=== PATIENT | male | born 1960 | race Caucasian/White ===

== ENCOUNTER 2025-02-16 01:33 | Inpatient (IN) | payer MEDICAID ==
[~2025-02-16] VITALS: Ht 172.7 cm; Wt 82.0 kg
[2025-02-16] VITALS (10 sets, daily range): BP systolic 105–158; BP diastolic 52–67; PULSE 89–103; RESP 10–20; TEMP 97–97.8; O2SAT 86–99
[2025-02-16] MEDS ORDERED: ALB0.5UD IH (01:45)
[2025-02-16 02:11] LABS: BASOPHILS % (AUTO) 0.1 % (0-1); EOSINOPHILS % (AUTO) 0 % (0-6); HEMATOCRIT 37.6 % (42.0-52.0); HEMOGLOBIN 12.9 g/dl (14.0-17.9); LYMPHOCYTES # (AUTO) 0.6 X10'3 (1.1-4.8); LYMPHOCYTES % (AUTO) 7.5 % (21-51); MEAN CORPUSCULAR HEMOGLOBIN 28.6 PG (27.0-31.0); MEAN CORPUSCULAR HGB CONC 34.2 g/dL (33.0-36.5); MEAN CORPUSCULAR VOLUME 83.6 FL (78-98); MEAN PLATELET VOLUME 7.3 FL (7.4-10.4); MONOCYTES # (AUTO) 0.5 X10'3 (0-0.9); NEUTROPHILS # (AUTO) 7.2 X10'3 (1.8-7.7); NEUTROPHILS % (AUTO) 86.4 % (42-75); PLATELET COUNT 426 X10'3 (140-440); RED CELL DISTRIBUTION WIDTH 14.4 % (11.5-14.5); WHITE BLOOD COUNT 8.4 X10'3 (4.5-11.0)
[2025-02-16 02:20] LABS: ALBUMIN 2.5 G/DL (3.4-5.0); ANION GAP 15 (8-16); BLOOD UREA NITROGEN 112 MG/DL (7-18); BUN/CREATININE RATIO 31.6 (10.0-20.0); CALCIUM 7.1 MG/DL (8.5-10.1); CHLORIDE 97 MMOL/L (99-107); CREATININE 3.54 MG/DL (0.60-1.10); GLUCOSE 108 MG/DL (70-104); POTASSIUM 4.4 MMOL/L (3.5-5.1); SODIUM 133 MMOL/L (135-145); TOTAL CARBON DIOXIDE 20.6 MMOL/L (24-32); eCRCL 22 ML/MIN; eGFR 18 ML/MIN
[2025-02-16 02:27] LABS: BILIRUBIN,URINE NEGATIVE (Neg); CLARITY,URINE CLEAR (Clear); COLOR,URINE YELLOW (Yellow); GLUCOSE, URINE NEGATIVE (Neg); KETONES,URINE NEGATIVE (Neg); LEUKOCYTE ESTERASE ,URINE NEGATIVE (Neg); NITRITES, URINE NEGATIVE (Neg); OCCULT BLOOD,URINE MODERATE (Neg); PH,URINE 5.5 (4.8-8.0); PROTEIN,URINE 30 mg/dl (Neg); UROBILINOGEN,URINE 0.2 E.U/dL (0.2-1.0)
[2025-02-16 02:43] LABS: UA COLLECTION TYPE URINAL
[2025-02-16 02:44] LABS: HYALINE CASTS 0-3 /LPF (NEGATIVE); SQUAMOUS EPITHELIAL CELL,UR FEW /LPF (FEW)
[2025-02-16 02:45] LABS: AMORPHOUS URATES 1+; BACTERIA,URINE 1+ /HPF (Neg); WBC,URINE 0-4 /HPF (0-4)
[2025-02-16] MEDS ORDERED: morphine 2 MG/ML inj. syringe IV PRN (03:25)
[2025-02-16] MEDS ORDERED: magnesium sulf-water 2g/50mL 50 ML IV PRN (03:25)
[2025-02-16] MEDS ORDERED: albuterol 2.5 MG/3 ML nebule NEB PRN (03:25)
[2025-02-16] MEDS ORDERED: potassium Cl 40MEQ/1/2NS 520ml 520 ML IV PRN (03:25)
[2025-02-16] MEDS ORDERED: magnesium Cl slow-release 64mg tablet PO PRN (03:25)
[2025-02-16] MEDS ORDERED: acetaminophen 325mg tablet PO PRN ×2 (03:25)
[2025-02-16] MEDS ORDERED: magnesium sulf-water 4G/100mL 100 ML IV PRN (03:25)
[2025-02-16] MEDS ORDERED: mag hydrox/Alum hydrox/simeth 30ml oral suspension PO PRN (03:25)
[2025-02-16] MEDS ORDERED: ondansetron/PF 4mg/2ml inj IV PRN (03:25)
[2025-02-16] MEDS ORDERED: potassium Cl 20 mEq SR tablet PO PRN ×2 (03:25)
[2025-02-16] MEDS: normal saline 1000ml 1,000 ML IV SCH (03:43)
[2025-02-16 04:06] LABS: HEMOGLOBIN A1C 5.5 % (4.5-6.2)
[2025-02-16 04:28] LABS: OSMOLALITY UA 441 MOSM/K (50-1400)
[2025-02-16 04:43] LABS: SODIUM,URINE RANDOM < 15 MEQ/L; URINE AMPHETAMINE SCREEN POSITIVE (Neg); URINE BARBITUATE SCREEN NEGATIVE (Neg); URINE BENZODIAZEPINES SCREEN NEGATIVE (Neg); URINE CANNABINOID SCREEN POSITIVE (Neg); URINE COCAINE SCREEN NEGATIVE (Neg); URINE METHADONE SCREEN NEGATIVE (Neg); URINE OPIATE SCREEN POSITIVE (Neg); URINE PHENCYCLIDINE SCREEN NEGATIVE (Neg)
[2025-02-16 05:07] LABS: MAGNESIUM 1.8 MG/DL (1.5-2.4); PHOSPHORUS 7.3 MG/DL (2.3-4.5)
[2025-02-16] MEDS: docusate sod 100mg capsule PO SCH (07:07)
[2025-02-16] MEDS: heparin, porcine 5000 units/ml vial SQ SCH (07:08)
[2025-02-16] MEDS: morphine 2 MG/ML inj. syringe IV PRN (07:08)
[2025-02-16] MEDS: K and/or MAG REPLACEMENT MC SCH (08:00)
[2025-02-16] MEDS: mineral oil 133ml enema RC PRN (09:55)
[2025-02-16 16:59] LABS: CHLORIDE,URINE RANDOM < 50 MEQ/L; SODIUM,URINE RANDOM 22 MEQ/L
[2025-02-16 17:01] LABS: OSMOLALITY UA 448 MOSM/K (50-1400)
[2025-02-16] MEDS: magnesium hydroxide 30ml (MOM) UD suspension PO PRN (21:38)
[2025-02-17] VITALS (8 sets, daily range): BP systolic 129–155; BP diastolic 52–73; PULSE 68–100; RESP 15–18; TEMP 97–98.6; O2SAT 90–99
[2025-02-17 06:56] LABS: OCCULT BLOOD STOOL NEGATIVE (Neg)
[2025-02-17 07:46] LABS: BASOPHILS % (AUTO) 0.2 % (0-1); EOSINOPHILS % (AUTO) 0.2 % (0-6); HEMATOCRIT 38.6 % (42.0-52.0); HEMOGLOBIN 12.9 g/dl (14.0-17.9); LYMPHOCYTES # (AUTO) 0.4 X10'3 (1.1-4.8); LYMPHOCYTES % (AUTO) 4.4 % (21-51); MEAN CORPUSCULAR HEMOGLOBIN 28.5 PG (27.0-31.0); MEAN CORPUSCULAR HGB CONC 33.4 g/dL (33.0-36.5); MEAN CORPUSCULAR VOLUME 85.3 FL (78-98); MEAN PLATELET VOLUME 7.5 FL (7.4-10.4); MONOCYTES # (AUTO) 0.8 X10'3 (0-0.9); MONOCYTES % (AUTO) 8.3 % (2-12); NEUTROPHILS # (AUTO) 8.9 X10'3 (1.8-7.7); NEUTROPHILS % (AUTO) 86.9 % (42-75); PLATELET COUNT 494 X10'3 (140-440); RED BLOOD COUNT 4.53 X10'6 (4.70-6.10); RED CELL DISTRIBUTION WIDTH 14.7 % (11.5-14.5); WHITE BLOOD COUNT 10.2 X10'3 (4.5-11.0)
[2025-02-17 08:05] LABS: ALBUMIN 2.2 G/DL (3.4-5.0); ANION GAP 15 (8-16); BLOOD UREA NITROGEN 82 MG/DL (7-18); BUN/CREATININE RATIO 37.6 (10.0-20.0); CALCIUM 8.1 MG/DL (8.5-10.1); CHLORIDE 107 MMOL/L (99-107); CHOLESTEROL 90 MG/DL (0-200); CREATININE 2.18 MG/DL (0.60-1.10); GLUCOSE 54 MG/DL (70-104); HDL CHOLESTEROL 18 MG/DL (35-60); LDL CHOLESTEROL 40 MG/DL (50-100); POTASSIUM 3.9 MMOL/L (3.5-5.1); SODIUM 143 MMOL/L (135-145); TOTAL CARBON DIOXIDE 20.9 MMOL/L (24-32); TRIGLYCERIDES 200 MG/DL (20-135); eCRCL 36 ML/MIN; eGFR 31 ML/MIN
[2025-02-17] MEDS ORDERED: ringers solution, lacted 1,000 ML IV SCH (13:55)
[2025-02-17] MEDS: dextrose 5%-water 1,000 ML IV SCH (15:26)
[2025-02-18] VITALS (22 sets, daily range): BP systolic 121–164; BP diastolic 54–84; PULSE 70–100; RESP 12–22; TEMP 97.7–99.9; O2SAT 91–100
[2025-02-18] MEDS: morphine 2 MG/ML inj. syringe IV PRN (03:57)
[2025-02-18 05:10] LABS: BASOPHILS % (AUTO) 0.2 % (0-1); EOSINOPHILS # (AUTO) 0.1 X10'3 (0-0.9); EOSINOPHILS % (AUTO) 0.8 % (0-6); HEMATOCRIT 36.7 % (42.0-52.0); HEMOGLOBIN 12.4 g/dl (14.0-17.9); LYMPHOCYTES # (AUTO) 0.7 X10'3 (1.1-4.8); LYMPHOCYTES % (AUTO) 6.9 % (21-51); MEAN CORPUSCULAR HEMOGLOBIN 28.7 PG (27.0-31.0); MEAN CORPUSCULAR HGB CONC 33.8 g/dL (33.0-36.5); MEAN PLATELET VOLUME 6.9 FL (7.4-10.4); MONOCYTES # (AUTO) 0.9 X10'3 (0-0.9); MONOCYTES % (AUTO) 8.4 % (2-12); NEUTROPHILS # (AUTO) 8.7 X10'3 (1.8-7.7); NEUTROPHILS % (AUTO) 83.7 % (42-75); PLATELET COUNT 481 X10'3 (140-440); RED BLOOD COUNT 4.32 X10'6 (4.70-6.10); RED CELL DISTRIBUTION WIDTH 14.4 % (11.5-14.5); WHITE BLOOD COUNT 10.4 X10'3 (4.5-11.0)
[2025-02-18 05:22] LABS: ANION GAP 7 (8-16); BLOOD UREA NITROGEN 43 MG/DL (7-18); BUN/CREATININE RATIO 31.9 (10.0-20.0); CALCIUM 8.1 MG/DL (8.5-10.1); CHLORIDE 103 MMOL/L (99-107); CREATININE 1.35 MG/DL (0.60-1.10); GLUCOSE 120 MG/DL (70-104); POTASSIUM 3.5 MMOL/L (3.5-5.1); SODIUM 136 MMOL/L (135-145); eCRCL 58 ML/MIN; eGFR 53 ML/MIN
[2025-02-18] MEDS: ipratropium/albuterol 3ml nebule NEB PRN (08:34)
[2025-02-18] MEDS: amLODIPine 5mg tablet PO ONE (09:02)
[2025-02-18] MEDS ORDERED: iohexol 300mg/ml 100ml inj. ONE (10:34)
[2025-02-18] MEDS ORDERED: morphine 4 MG/ML inj SYRINge IV PRN (13:10)
[2025-02-18] MEDS ORDERED: meperidine/PF 25mg/ml syringe IV PRN ×3 (13:10)
[2025-02-18] MEDS ORDERED: labetalol 20mg/4ml (5mg/ml) syringe IV PRN (13:10)
[2025-02-18] MEDS ORDERED: ringers solution, lacted 1,000 ML IV SCH (13:10)
[2025-02-18] MEDS ORDERED: morphine 2 MG/ML inj. syringe IV PRN (13:10)
[2025-02-18] MEDS ORDERED: enalaprilat 1.25mg/ml 2ml vial IV PRN (13:10)
[2025-02-18] MEDS ORDERED: ondansetron/PF 4mg/2ml inj IV PRN (13:10)
[2025-02-18] MEDS ORDERED: proCHLORperazine 10 MG/2 ml inj IV PRN (13:10)
[2025-02-18] MEDS: levoFLOXACIN-Levaquin 500mg/D5 100 ML IV ONE (13:20)
[2025-02-18] MEDS ORDERED: sevoflurane 250ml liquid IH ONE (13:26)
[2025-02-18] MEDS ORDERED: midazolam 1 mg/ML 2ml injection ONE (13:40)
[2025-02-18] MEDS ORDERED: fentaNYL /PF 50mcg/ml 5ml ampule ONE (13:41)
[2025-02-18] MEDS ORDERED: rocuronium 10mg/ml inj IV ONE (13:59)
[2025-02-18] MEDS ORDERED: LIDOcaine 2% (20mg/ml) 5ml vial ONE (13:59)
[2025-02-18] MEDS ORDERED: ePHEDrine 50MG/ML INJ. ONE (13:59)
[2025-02-18] MEDS ORDERED: propofol inj 20 ML IV ONE (13:59)
[2025-02-18] MEDS ORDERED: LIDOcaine 2% jelly 6ml syringe ***for topical use only ONE (14:00)
[2025-02-18] MEDS ORDERED: ceFOXitin 1000 MG inj ONE ×2 (14:09)
[2025-02-18] MEDS ORDERED: BUPIVACAINE liposomal/PF 13.3 MG/ML 10mL vial IM ONE (15:47)
[2025-02-18] MEDS ORDERED: BUPIVAcaine 2.5mg/ml inj 50ml vial (contains preservative) ONE (15:47)
[2025-02-18] MEDS: metroNIDAZOLE-Flagyl 500mg/NS 100 ML IV SCH (18:57)
[2025-02-18] MEDS: dextrose 5%-lactated ringers 1,000 ML IV SCH (18:58)
[2025-02-18] MEDS: HYDROmorphone inj. 0.5 MG/0.5 ML DISP.SYRIN IV PRN (20:05)
[2025-02-19] VITALS (7 sets, daily range): BP systolic 130–138; BP diastolic 63–88; PULSE 82–90; RESP 14–18; TEMP 97.9–98.7; O2SAT 91–97
[2025-02-19 04:39] LABS: BASOPHILS % (AUTO) 0 % (0-1); EOSINOPHILS % (AUTO) 0 % (0-6); HEMOGLOBIN 11.4 g/dl (14.0-17.9); LYMPHOCYTES # (AUTO) 0.3 X10'3 (1.1-4.8); MEAN CORPUSCULAR HGB CONC 31.8 g/dL (33.0-36.5); MEAN CORPUSCULAR VOLUME 84.9 FL (78-98); MEAN PLATELET VOLUME 6.8 FL (7.4-10.4); MONOCYTES # (AUTO) 0.7 X10'3 (0-0.9); MONOCYTES % (AUTO) 4.8 % (2-12); NEUTROPHILS # (AUTO) 13.3 X10'3 (1.8-7.7); NEUTROPHILS % (AUTO) 93.2 % (42-75); PLATELET COUNT 498 X10'3 (140-440); RED BLOOD COUNT 4.24 X10'6 (4.70-6.10); RED CELL DISTRIBUTION WIDTH 14.5 % (11.5-14.5); WHITE BLOOD COUNT 14.3 X10'3 (4.5-11.0)
[2025-02-19 04:51] LABS: ALBUMIN 1.8 G/DL (3.4-5.0); ANION GAP 6 (8-16); BLOOD UREA NITROGEN 24 MG/DL (7-18); BUN/CREATININE RATIO 19.7 (10.0-20.0); CALCIUM 7.7 MG/DL (8.5-10.1); CHLORIDE 105 MMOL/L (99-107); CREATININE 1.22 MG/DL (0.60-1.10); GLUCOSE 193 MG/DL (70-104); POTASSIUM 4.3 MMOL/L (3.5-5.1); SODIUM 137 MMOL/L (135-145); TOTAL CARBON DIOXIDE 26.1 MMOL/L (24-32); eCRCL 60 ML/MIN; eGFR 60 ML/MIN
[2025-02-19] MEDS ORDERED: piperacillin/tazo 3.375gm/50ml 50 ML IV SCH (08:00)
[2025-02-19] MEDS: amLODIPine 5mg tablet PO SCH (08:22)
[2025-02-19] MEDS: CefTRIAXone 2gm/D5W 50ml BAG 50 ML IV SCH (12:49)
[2025-02-19] MEDS: metroNIDAZOLE-Flagyl 500mg/NS 100 ML IV SCH (12:49)
[2025-02-20] VITALS (8 sets, daily range): BP systolic 131–149; BP diastolic 71–88; PULSE 74–89; RESP 14–18; TEMP 97.2–99.4; O2SAT 91–98
[2025-02-20 06:40] LABS: BASOPHILS % (AUTO) 0.1 % (0-1); EOSINOPHILS # (AUTO) 0.1 X10'3 (0-0.9); EOSINOPHILS % (AUTO) 0.4 % (0-6); HEMATOCRIT 32.8 % (42.0-52.0); HEMOGLOBIN 10.8 g/dl (14.0-17.9); LYMPHOCYTES % (AUTO) 6.5 % (21-51); MEAN CORPUSCULAR HEMOGLOBIN 28.3 PG (27.0-31.0); MEAN CORPUSCULAR HGB CONC 32.9 g/dL (33.0-36.5); MEAN CORPUSCULAR VOLUME 85.9 FL (78-98); MEAN PLATELET VOLUME 7.1 FL (7.4-10.4); MONOCYTES % (AUTO) 6.7 % (2-12); NEUTROPHILS # (AUTO) 13.3 X10'3 (1.8-7.7); NEUTROPHILS % (AUTO) 86.3 % (42-75); PLATELET COUNT 444 X10'3 (140-440); RED BLOOD COUNT 3.81 X10'6 (4.70-6.10); RED CELL DISTRIBUTION WIDTH 14.5 % (11.5-14.5); WHITE BLOOD COUNT 15.4 X10'3 (4.5-11.0)
[2025-02-20 06:53] LABS: ALBUMIN 1.7 G/DL (3.4-5.0); ANION GAP 5 (8-16); BLOOD UREA NITROGEN 18 MG/DL (7-18); BUN/CREATININE RATIO 16.8 (10.0-20.0); CALCIUM 7.7 MG/DL (8.5-10.1); CHLORIDE 104 MMOL/L (99-107); CREATININE 1.07 MG/DL (0.60-1.10); GLUCOSE 107 MG/DL (70-104); POTASSIUM 3.5 MMOL/L (3.5-5.1); SODIUM 138 MMOL/L (135-145); TOTAL CARBON DIOXIDE 29.4 MMOL/L (24-32); eCRCL 68 ML/MIN; eGFR 70 ML/MIN
[2025-02-21] VITALS (11 sets, daily range): BP systolic 119–157; BP diastolic 62–76; PULSE 81–103; RESP 16–24; TEMP 97.7–98.4; O2SAT 93–97
[2025-02-21] MEDS: morphine 2 MG/ML inj. syringe IV PRN (04:05)
[2025-02-21] MEDS: morphine 2 MG/ML inj. syringe IV ONE (05:21)
[2025-02-21 07:03] LABS: BASOPHILS % (AUTO) 0.1 % (0-1); EOSINOPHILS # (AUTO) 0.2 X10'3 (0-0.9); EOSINOPHILS % (AUTO) 1.2 % (0-6); HEMATOCRIT 33.2 % (42.0-52.0); HEMOGLOBIN 11.1 g/dl (14.0-17.9); LYMPHOCYTES # (AUTO) 1.1 X10'3 (1.1-4.8); LYMPHOCYTES % (AUTO) 6.9 % (21-51); MEAN CORPUSCULAR HEMOGLOBIN 28.4 PG (27.0-31.0); MEAN CORPUSCULAR HGB CONC 33.4 g/dL (33.0-36.5); MEAN PLATELET VOLUME 6.7 FL (7.4-10.4); MONOCYTES # (AUTO) 0.6 X10'3 (0-0.9); MONOCYTES % (AUTO) 4.1 % (2-12); NEUTROPHILS # (AUTO) 13.6 X10'3 (1.8-7.7); NEUTROPHILS % (AUTO) 87.7 % (42-75); PLATELET COUNT 452 X10'3 (140-440); RED CELL DISTRIBUTION WIDTH 14.2 % (11.5-14.5); WHITE BLOOD COUNT 15.5 X10'3 (4.5-11.0)
[2025-02-21 07:24] LABS: ALBUMIN 1.7 G/DL (3.4-5.0); ANION GAP 7 (8-16); BLOOD UREA NITROGEN 12 MG/DL (7-18); BUN/CREATININE RATIO 12.5 (10.0-20.0); CALCIUM 7.6 MG/DL (8.5-10.1); CHLORIDE 102 MMOL/L (99-107); CREATININE 0.96 MG/DL (0.60-1.10); GLUCOSE 99 MG/DL (70-104); POTASSIUM 3.3 MMOL/L (3.5-5.1); SODIUM 138 MMOL/L (135-145); TOTAL CARBON DIOXIDE 29.3 MMOL/L (24-32); eCRCL 76 ML/MIN; eGFR 79 ML/MIN
[2025-02-21] MEDS ORDERED: magnesium sulf-water 2g/50mL 50 ML IV PRN (15:55)
[2025-02-21] MEDS ORDERED: magnesium sulf-water 4G/100mL 100 ML IV PRN (15:55)
[2025-02-21] MEDS ORDERED: potassium Cl 40MEQ/1/2NS 520ml 520 ML IV PRN (15:55)
[2025-02-21 16:27] LABS: MAGNESIUM 1.3 MG/DL (1.5-2.4)
[2025-02-21] MEDS: potassium Cl 20 mEq SR tablet PO PRN ×2 (17:07→21:15)
[2025-02-21] MEDS: K and/or MAG REPLACEMENT MC SCH (20:00)
[2025-02-21] MEDS: magnesium hydroxide 30ml (MOM) UD suspension PO SCH (20:33)
[2025-02-21] MEDS: magnesium Cl slow-release 64mg tablet PO PRN (21:15)
[2025-02-22] VITALS (12 sets, daily range): BP systolic 122–129; BP diastolic 63–69; PULSE 81–109; RESP 14–20; TEMP 97.6–98.6; O2SAT 93–98
[2025-02-22 06:34] LABS: MAGNESIUM 1.6 MG/DL (1.5-2.4)
[2025-02-22 09:19] LABS: ALANINE AMINOTRANSFERASE 18 U/L (12-78); ALBUMIN 1.8 G/DL (3.4-5.0); ALBUMIN/GLOBULIN RATIO 0.5 (1.1-1.5); ALKALINE PHOSPHATASE 87 IU/L (46-116); ANION GAP 9 (8-16); ASPARTATE AMINO TRANSFERASE 17 U/L (10-37); BILIRUBIN,TOTAL 0.3 MG/DL (0.1-1.0); BLOOD UREA NITROGEN 14 MG/DL (7-18); BUN/CREATININE RATIO 14.4 (10.0-20.0); CHLORIDE 103 MMOL/L (99-107); CREATININE 0.97 MG/DL (0.60-1.10); GLUCOSE 103 MG/DL (70-104); POTASSIUM 4.1 MMOL/L (3.5-5.1); SODIUM 137 MMOL/L (135-145); TOTAL CARBON DIOXIDE 25.4 MMOL/L (24-32); TOTAL PROTEIN 5.8 G/DL (6.4-8.2); eCRCL 75 ML/MIN; eGFR 78 ML/MIN
[2025-02-22 12:26] LABS: BASOPHILS % (AUTO) 0.3 % (0-1); EOSINOPHILS # (AUTO) 0.4 X10'3 (0-0.9); EOSINOPHILS % (AUTO) 2.8 % (0-6); HEMATOCRIT 34.1 % (42.0-52.0); HEMOGLOBIN 10.9 g/dl (14.0-17.9); LYMPHOCYTES % (AUTO) 6.6 % (21-51); MEAN CORPUSCULAR HEMOGLOBIN 27.2 PG (27.0-31.0); MEAN CORPUSCULAR VOLUME 85.1 FL (78-98); MEAN PLATELET VOLUME 6.4 FL (7.4-10.4); MONOCYTES # (AUTO) 0.7 X10'3 (0-0.9); MONOCYTES % (AUTO) 4.9 % (2-12); NEUTROPHILS # (AUTO) 12.5 X10'3 (1.8-7.7); NEUTROPHILS % (AUTO) 85.4 % (42-75); PLATELET COUNT 467 X10'3 (140-440); RED BLOOD COUNT 4.01 X10'6 (4.70-6.10); RED CELL DISTRIBUTION WIDTH 14.5 % (11.5-14.5); WHITE BLOOD COUNT 14.7 X10'3 (4.5-11.0)
[2025-02-23] VITALS (12 sets, daily range): BP systolic 115–132; BP diastolic 61–69; PULSE 79–89; RESP 14–19; TEMP 97.5–98.3; O2SAT 95–99
[2025-02-23 05:26] LABS: BASOPHILS % (AUTO) 0.2 % (0-1); EOSINOPHILS # (AUTO) 0.6 X10'3 (0-0.9); EOSINOPHILS % (AUTO) 3.7 % (0-6); LYMPHOCYTES # (AUTO) 1.5 X10'3 (1.1-4.8); LYMPHOCYTES % (AUTO) 9.1 % (21-51); MEAN CORPUSCULAR HEMOGLOBIN 27.9 PG (27.0-31.0); MEAN CORPUSCULAR HGB CONC 33.3 g/dL (33.0-36.5); MEAN CORPUSCULAR VOLUME 83.9 FL (78-98); MEAN PLATELET VOLUME 6.5 FL (7.4-10.4); MONOCYTES # (AUTO) 0.8 X10'3 (0-0.9); MONOCYTES % (AUTO) 4.7 % (2-12); NEUTROPHILS # (AUTO) 13.7 X10'3 (1.8-7.7); NEUTROPHILS % (AUTO) 82.3 % (42-75); PLATELET COUNT 544 X10'3 (140-440); RED BLOOD COUNT 3.94 X10'6 (4.70-6.10); RED CELL DISTRIBUTION WIDTH 14.2 % (11.5-14.5); WHITE BLOOD COUNT 16.6 X10'3 (4.5-11.0)
[2025-02-23 05:48] LABS: ALANINE AMINOTRANSFERASE 18 U/L (12-78); ALBUMIN 2.1 G/DL (3.4-5.0); ALBUMIN/GLOBULIN RATIO 0.7 (1.1-1.5); ALKALINE PHOSPHATASE 88 IU/L (46-116); ANION GAP 10 (8-16); ASPARTATE AMINO TRANSFERASE 19 U/L (10-37); BILIRUBIN,TOTAL 0.3 MG/DL (0.1-1.0); BLOOD UREA NITROGEN 16 MG/DL (7-18); BUN/CREATININE RATIO 14.8 (10.0-20.0); CALCIUM 7.7 MG/DL (8.5-10.1); CHLORIDE 100 MMOL/L (99-107); CREATININE 1.08 MG/DL (0.60-1.10); GLUCOSE 82 MG/DL (70-104); MAGNESIUM 1.4 MG/DL (1.5-2.4); POTASSIUM 4.2 MMOL/L (3.5-5.1); SODIUM 136 MMOL/L (135-145); TOTAL CARBON DIOXIDE 26.5 MMOL/L (24-32); TOTAL PROTEIN 5.3 G/DL (6.4-8.2); eCRCL 68 ML/MIN; eGFR 69 ML/MIN
[2025-02-23] MEDS: HYDROcodone/acetaminophen 10/325mg tab PO PRN (16:49)
[2025-02-23] MEDS: diatr meglu/diatrizoate 30ml oral sol.-(3 dose) bottle PO SCH (21:20)
[2025-02-24] VITALS (8 sets, daily range): BP systolic 125–152; BP diastolic 55–70; PULSE 73–96; RESP 14–18; TEMP 97.6–98.4; O2SAT 96–99
[2025-02-24 04:57] LABS: BASOPHILS # (AUTO) 0.1 X10'3 (0-0.2); BASOPHILS % (AUTO) 0.4 % (0-1); EOSINOPHILS # (AUTO) 0.5 X10'3 (0-0.9); EOSINOPHILS % (AUTO) 3.4 % (0-6); HEMATOCRIT 32.7 % (42.0-52.0); HEMOGLOBIN 10.7 g/dl (14.0-17.9); LYMPHOCYTES # (AUTO) 1.4 X10'3 (1.1-4.8); LYMPHOCYTES % (AUTO) 9.2 % (21-51); MEAN CORPUSCULAR HEMOGLOBIN 27.6 PG (27.0-31.0); MEAN CORPUSCULAR HGB CONC 32.7 g/dL (33.0-36.5); MEAN CORPUSCULAR VOLUME 84.3 FL (78-98); MEAN PLATELET VOLUME 6.4 FL (7.4-10.4); MONOCYTES # (AUTO) 0.7 X10'3 (0-0.9); MONOCYTES % (AUTO) 4.6 % (2-12); NEUTROPHILS # (AUTO) 12.6 X10'3 (1.8-7.7); NEUTROPHILS % (AUTO) 82.4 % (42-75); PLATELET COUNT 560 X10'3 (140-440); RED BLOOD COUNT 3.88 X10'6 (4.70-6.10); RED CELL DISTRIBUTION WIDTH 14.4 % (11.5-14.5); WHITE BLOOD COUNT 15.3 X10'3 (4.5-11.0)
[2025-02-24 05:16] LABS: ALANINE AMINOTRANSFERASE 20 U/L (12-78); ALBUMIN 1.9 G/DL (3.4-5.0); ALBUMIN/GLOBULIN RATIO 0.6 (1.1-1.5); ALKALINE PHOSPHATASE 83 IU/L (46-116); ANION GAP 8 (8-16); ASPARTATE AMINO TRANSFERASE 21 U/L (10-37); BILIRUBIN,TOTAL 0.1 MG/DL (0.1-1.0); BLOOD UREA NITROGEN 20 MG/DL (7-18); BUN/CREATININE RATIO 20.4 (10.0-20.0); CALCIUM 7.7 MG/DL (8.5-10.1); CHLORIDE 102 MMOL/L (99-107); CREATININE 0.98 MG/DL (0.60-1.10); GLUCOSE 89 MG/DL (70-104); MAGNESIUM 1.4 MG/DL (1.5-2.4); POTASSIUM 4.5 MMOL/L (3.5-5.1); SODIUM 135 MMOL/L (135-145); TOTAL CARBON DIOXIDE 25.1 MMOL/L (24-32); TOTAL PROTEIN 4.9 G/DL (6.4-8.2); eCRCL 75 ML/MIN; eGFR 77 ML/MIN
[2025-02-24] MEDS ORDERED: iohexol 300mg/ml 100ml inj. ONE ×2 (10:48→11:23)
[2025-02-24] MEDS ORDERED: magnesium sulf-water 4G/100mL 100 ML IV PRN (19:40)
[2025-02-24] MEDS ORDERED: potassium Cl 20 mEq SR tablet PO PRN ×2 (19:40)
[2025-02-24] MEDS ORDERED: magnesium sulf-water 2g/50mL 50 ML IV PRN (19:40)
[2025-02-24] MEDS ORDERED: potassium Cl 40MEQ/1/2NS 520ml 520 ML IV PRN (19:40)
[2025-02-24] MEDS: K and/or MAG REPLACEMENT MC SCH (20:00)
[2025-02-24] MEDS: magnesium Cl slow-release 64mg tablet PO PRN (20:39)
[2025-02-25 04:55] LABS: HEMATOCRIT 33.3 % (42.0-52.0); MEAN CORPUSCULAR HEMOGLOBIN 27.9 PG (27.0-31.0); MEAN CORPUSCULAR VOLUME 84.5 FL (78-98); RED BLOOD COUNT 3.94 X10'6 (4.70-6.10)
[2025-02-25 04:56] LABS: BASOPHILS # (AUTO) 0.1 X10'3 (0-0.2); BASOPHILS % (AUTO) 0.5 % (0-1); EOSINOPHILS # (AUTO) 0.4 X10'3 (0-0.9); EOSINOPHILS % (AUTO) 2.7 % (0-6); LYMPHOCYTES # (AUTO) 1.3 X10'3 (1.1-4.8); LYMPHOCYTES % (AUTO) 8.9 % (21-51); MEAN PLATELET VOLUME 6.4 FL (7.4-10.4); MONOCYTES # (AUTO) 0.8 X10'3 (0-0.9); MONOCYTES % (AUTO) 5.2 % (2-12); NEUTROPHILS # (AUTO) 12.4 X10'3 (1.8-7.7); NEUTROPHILS % (AUTO) 82.7 % (42-75); PLATELET COUNT 683 X10'3 (140-440); RED CELL DISTRIBUTION WIDTH 14.2 % (11.5-14.5)
[2025-02-25 05:11] LABS: ALANINE AMINOTRANSFERASE 23 U/L (12-78); ALBUMIN/GLOBULIN RATIO 0.5 (1.1-1.5); ALKALINE PHOSPHATASE 83 IU/L (46-116); ANION GAP 5 (8-16); ASPARTATE AMINO TRANSFERASE 19 U/L (10-37); BILIRUBIN,TOTAL 0.2 MG/DL (0.1-1.0); BLOOD UREA NITROGEN 20 MG/DL (7-18); CALCIUM 7.9 MG/DL (8.5-10.1); CHLORIDE 103 MMOL/L (99-107); GLUCOSE 84 MG/DL (70-104); MAGNESIUM 1.5 MG/DL (1.5-2.4); POTASSIUM 4.2 MMOL/L (3.5-5.1); SODIUM 136 MMOL/L (135-145); TOTAL CARBON DIOXIDE 28.5 MMOL/L (24-32); TOTAL PROTEIN 5.7 G/DL (6.4-8.2); eCRCL 73 ML/MIN; eGFR 75 ML/MIN
[2025-02-25 06:00] VITALS: BP 141/84; PULSE 85; RESP 18; TEMP 98.1; O2SAT 97
[2025-02-25] MEDS ORDERED: METR-159 PO (07:52)
[2025-02-25] MEDS ORDERED: AMLO10TA13 PO (07:52)
[2025-02-25] MEDS ORDERED: LACT1CAP76 PO (07:52)
[2025-02-25] MEDS ORDERED: CIPR-202 PO (07:52)
[2025-02-25] MEDS ORDERED: HYDR-3972 PO (07:52)
[2025-02-25 10:00] VITALS: BP 110/64; PULSE 84; RESP 16; TEMP 97.5; O2SAT 97
== END 2025-02-25 11:55 | disposition home or self-care (01) | DRG 230 ==
LOC: ER 01:34 → ED HOLD 02:20 → UNDOADMIN 02:20 → ED HOLD 03:31 → EDBEDREQ 03:59 → PCU 3S 04:36 → ED HOLD 04:36 → SUR 3N 02-18 02:48
PROVIDERS: ADMIT Internal Medicine Pulmonary Disease; ATTEND Nurse Practitioner Family
PROC: 0D9670Z Drainage of Stomach with Drainage Device, Via Natural or Artificial Opening (ICD-10-PCS; 2025-02-16)
PROC: 0DBF0ZZ Excision of Right Large Intestine, Open Approach (ICD-10-PCS; 2025-02-18)
PROC: 0YQ50ZZ Repair Right Inguinal Region, Open Approach (ICD-10-PCS; 2025-02-18)
PROC: 3E0T3BZ Introduction of Anesthetic Agent into Peripheral Nerves and Plexi, Percutaneous Approach (ICD-10-PCS; 2025-02-18)
PROC: BW211ZZ Computerized Tomography (CT Scan) of Abdomen and Pelvis using Low Osmolar Contrast (ICD-10-PCS; 2025-02-18)
PROC: 0DBB0ZZ Excision of Ileum, Open Approach (ICD-10-PCS; principal; 2025-02-18 13:26)
PROC: BW211ZZ Computerized Tomography (CT Scan) of Abdomen and Pelvis using Low Osmolar Contrast (ICD-10-PCS; 2025-02-24)
DX: K40.30 Unilateral inguinal hernia, with obstruction, without gangrene, not specified as recurrent (principal); N17.0 Acute kidney failure with tubular necrosis; J96.21 Acute and chronic respiratory failure with hypoxia; E43 Unspecified severe protein-calorie malnutrition; K65.2 Spontaneous bacterial peritonitis; K55.9 Vascular disorder of intestine, unspecified; E87.20 Acidosis, unspecified; E87.1 Hypo-osmolality and hyponatremia; E83.51 Hypocalcemia; Z68.25 Body mass index [BMI] 25.0-25.9, adult; J44.1 Chronic obstructive pulmonary disease with (acute) exacerbation; B96.20 Unspecified Escherichia coli [E. coli] as the cause of diseases classified elsewhere; F17.210 Nicotine dependence, cigarettes, uncomplicated; E88.09 Other disorders of plasma-protein metabolism, not elsewhere classified; I10 Essential (primary) hypertension; Z88.0 Allergy status to penicillin; Z88.1 Allergy status to other antibiotic agents
CPT/HCPCS: 36415; 43762; 71045; 73100; 74177; 74178; 76700; 76705; 76770; 80048; 80053; 80061; 80305; 81001; 82272; 82436; 82570; 83036; 83735; 83930; 83935; 84100; 84132; 84133; 84145; 84300; 84484; 84540; 85025; 87040; 87070; 87075; 87076; 87077; 87081; 87185; 87186; 93005; 93306; 93975; 94640; 94760; 96361; 96372; 96374; 97161; 97530; 97535; 99285; A4615; A4618; A6449; A7000; G0378; J0666; J0694; J0696; J1100; J1171; J1644; J2003; J2250; J2270; J2405; J2704; J2710; J3010; J3490; J7030; J7040; J7070; J7120; J7121; Q9963; Q9967